=== PATIENT | female | born 1980 | race Hispanic/Latino ===

== ENCOUNTER 2019-02-24 03:31 | Emergency (ER) | payer OTHER, SELFPAY ==
[2019-02-24] MEDS ORDERED: NA CHLORIDE 0.9% 1,000 ML ONE (04:09)
[2019-02-24] MEDS ORDERED: ONDANSETRON 4 MG/2 ML VIAL ONE ×2 (04:09→06:32)
[2019-02-24] MEDS ORDERED: MEPERIDINE HCL 25 MG/0.5 ML ONE (04:28)
[2019-02-24 04:31] LABS: Absolute Monocytes 0.7 K/uL (0.1-1.3); Basophils % 0.8 % (0-1.3); Hematocrit 38.5 % (36.0-45.0); Lymphocytes % 22.3 % (15.3-44.8); MPV 8.2 fL (7.6-11.3); Monocytes % 7.7 % (3.3-12.3); RBC Red Blood Cell Count 5.38 M/uL (3.86-4.86)
[2019-02-24 04:47] LABS: ALT/SGPT 18 U/L (12-78); AST/SGOT 16 U/L (15-37); Albumin 3.6 g/dL (3.4-5.0); Alkaline Phosphatase 88 U/L (45-117); BUN Blood Urea Nitrogen 9 mg/dL (7-18); Bicarbonate 26 mmol/L (21-32); Bilirubin Direct < 0.1 mg/dL (0-0.2); Bilirubin Total 0.4 mg/dL (0.2-1.0); Glucose Level 102 mg/dL (74-106); Lipase 57 U/L (73-393); Protein, Total 7.6 g/dL (6.4-8.2); Sodium Level 141 mmol/L (136-145)
[2019-02-24] MEDS ORDERED: POTASSIUM CL SA 10 MEQ TAB PO ONE (05:16)
--- NOTE | 2019-02-24 07:05 | ER ---
Nurse's Notes [facility] Name: Camila Oneil Age: 38 yrs Sex: Female : 1980 Arrival Date: 02/24/2019 Time: 03:35 Bed 18 Private MD: Diagnosis: Streptococcal pharyngitis;Vomiting Presentation: 02/24 03:40 Presenting complaint: Patient states: I'm having abdominal pain and vomiting started 3 rr5 days ago pain. denies fever and diarrhea. pain score of 7/10. 03:40 Transition of care: patient was not received from another setting of care. Onset of rr5 symptoms was February 21, 2019. Risk Assessment: Do you want to hurt yourself or someone else? Patient reports no desire to harm self or others. Initial Sepsis Screen: Does the patient meet any 2 criteria? No. Patient's initial sepsis screen is negative. Does the patient have a suspected source of infection? No. Patient's initial sepsis screen is negative. Care prior to arrival: None. 03:40 Method Of Arrival: Ambulatory rr5 03:40 Acuity: RUFINO 3 rr5 SHORE HAND DREDGE OR BARGE: 03:40 LMP 02/24/2019, 7 th day of menstruation rr5 Historical: - Allergies: 03:45 No Known Allergies; rr5 - Home Meds: 03:45 diet pill [Active]; rr5 - PMHx: 03:45 None; rr5 - PSHx: 03:45 Cholecystectomy; ; rr5 03:45 Tubal ligation; rr5 - Immunization history:: Adult Immunizations up to date. - Social history:: Smoking status: Patient uses tobacco products, denies chronic smoking, but will smoke occasionally, Patient/guardian denies using alcohol, street drugs. - Ebola Screening: : Patient negative for fever greater than or equal to 101.5 degrees Fahrenheit, and additional compatible Ebola Virus Disease symptoms Patient denies exposure to infectious person Patient denies travel to an Ebola-affected area in the 21 days before illness onset. - Family history:: not pertinent. - Hospitalizations: : No recent hospitalization is reported. Screenin:09 Abuse screen: Denies threats or abuse. Denies injuries from another. Nutritional rr5 screening: No deficits noted. Tuberculosis screening: No symptoms or risk factors identified. Fall Risk IV access (20 points). Total Isaac Fall Scale indicates No Risk (0-24 pts). Assessment: 03:40 General: Appears in no apparent distress. uncomfortable, Behavior is calm, cooperative, rr5 appropriate for age. Pain: Complains of pain in left upper quadrant Pain does not radiate. Pain currently is 7 out of 10 on a pain scale. Quality of pain is described as aching, Pain began 2-3 days ago. Is intermittent. Neuro: Level of Consciousness is awake, alert, obeys commands, Oriented to person, place, time, Appropriate for age. Cardiovascular: Capillary refill < 3 seconds Patient's skin is warm and dry. Respiratory: Airway is patent Respiratory effort is even, unlabored, Respiratory pattern is regular, symmetrical. GI: Abdomen is round Bowel sounds Abd is soft and non tender Reports upper abdominal pain, intolerance of fluids, intolerance of food, nausea, vomiting. : No signs and/or symptoms were reported regarding the genitourinary system. EENT: No signs and/or symptoms were reported regarding the EENT system. Derm: Skin is intact, Skin temperature is warm. Musculoskeletal: Capillary refill < 3 seconds, Range of motion: intact in all extremities. 04:18 Reassessment: oral contrast consumed. CT staff aware. rr5 04:50 Reassessment: Patient appears in no apparent distress at this time. Patient is alert, rr5 oriented x 3, equal unlabored respirations, skin warm/dry/pink. Patient states feeling better. Patient states symptoms have improved. 05:55 Reassessment: Patient appears in no apparent distress at this time. Patient is alert, rr5 oriented x 3, equal unlabored respirations, skin warm/dry/pink. went to CT scan. 06:15 Reassessment: came back from CT scan. complaining of nauseated. ED provider aware with rr5 order made and carried out. 07:30 Reassessment: Patient appears in no apparent distress at this time. Patient and/or sv family updated on plan of care and expected duration. Pain level reassessed. Patient is alert, oriented x 3, equal unlabored respirations, skin warm/dry/pink. Pt waiting for shot time. 07:54 Reassessment: Patient appears in no apparent distress at this time. Patient and/or sv family updated on plan of care and expected duration. Pain level reassessed. Patient is alert, oriented x 3, equal unlabored respirations, skin warm/dry/pink. Patient states feeling better. Patient states symptoms have improved. Vital Signs: 03:40 BP 131 / 102; Pulse 103; Resp 17; Temp 98; Pulse Ox 99% ; Weight 65.32 kg; Height 5 ft. rr5 2 in. (157.48 cm); Pain 7/10; 04:25 BP 142 / 111; Pulse 95; Resp 17; Pulse Ox 99% on R/A; rr5 04:49 BP 116 / 89; Pulse 81; Resp 15; Pulse Ox 99% on R/A; Pain 5/10; rr5 06:00 BP 110 / 78; Pulse 75; Resp 16; Temp 98.1; Pulse Ox 99% on R/A; rr5 07:30 BP 112 / 77; Pulse 77; Resp 18; Pulse Ox 99% ; sv 03:40 Body Mass Index 26.34 (65.32 kg, 157.48 cm) rr5 ED Course: 03:35 Patient arrived in ED. am2 03:35 Arie Fitzpatrick RN is Primary Nurse. rr5 03:35 Anish Green MD is Attending Physician. rn 03:40 Arm band placed on. rr5 03:44 Triage completed. rr5 03:55 Flu and/or RSV swab sent to lab. Strep swab sent to lab. rr5 04:00 No provider procedures requiring assistance completed. Initial lab(s) drawn, by de, rr5 sent to lab. Inserted saline lock: 20 gauge in right antecubital area, using aseptic technique. Blood collected. 04:20 Oral contrast reported to be complete. eh 06:[address] via wheelchair. eh 06:02 CT completed. Patient tolerated procedure well. Patient moved back from CT. eh 06:20 CT Abd/Pelvis - W/Contrast In Process Unspecified. EDMS 07:30 Patient has correct armband on for positive identification. sv 07:54 IV discontinued, intact, bleeding controlled, No redness/swelling at site. Pressure sv dressing applied. Administered Medications: 04:00 Drug: NS 0.9% 1000 ml Route: IV; Rate: 1000 ml; Site: right antecubital; rr5 05:10 Follow up: Response: No adverse reaction; IV Status: Completed infusion; IV Intake: rr5 1000ml 04:01 Drug: Zofran 4 mg Route: IVP; Site: right antecubital; rr5 05:00 Follow up: Response: No adverse reaction rr5 04:15 Drug: Demerol 25 mg Route: IVP; Site: right antecubital; rr5 05:15 Follow up: Response: No adverse reaction rr5 06:20 Drug: Potassium Chloride 40 mEq Route: PO; rr5 07:11 Follow up: Response: No adverse reaction rr5 06:22 Drug: Zofran 4 mg Route: IVP; Site: right antecubital; rr5 07:11 Follow up: Response: No adverse reaction rr5 07:28 Drug: Rocephin - (cefTRIAXone) 1 grams Route: IVPB; Infused Over: 30 mins; Site: right sv antecubital; 07:31 Follow up: Response: No adverse reaction; IV Status: Completed infusion; IV Intake: 10mlsv Intake: 05:10 IV: 1000ml; Total: 1000ml. rr5 07:31 IV: 10ml; Total: 1010ml. sv 06:50 voided freely rr5 Output: 06:50 Other: 1; Total: 0ml. rr5 06:50 voided freely rr5 Outcome: 07:04 Discharge ordered by . rn 07:54 Discharged to home ambulatory. sv 07:54 Condition: stable 07:54 Condition: improved 07:54 Discharge instructions given to patient, Instructed on discharge instructions, follow up and referral plans. medication usage, Demonstrated understanding of instructions, follow-up care, medications, Prescriptions given X 2. 07:55 Patient left the ED. sv Signatures: Dispatcher [employer] Karol Rodriguez RN Brian Gomez Roman, MD MD rn Moreno, Amanda am2 Roque, Raymond, RN RN rr5 Corrections: (The following items were deleted from the chart) 04:14 03:45 PMHx: None; rr5 rr5
--- NOTE | 2019-02-24 07:05 | EDPHYS ---
Physician Documentation [facility] Name: Camila Oneil Age: 38 yrs Sex: Female : 1980 Arrival Date: 02/24/2019 Time: 03:35 Bed 18 Private MD: ED Physician Anish Green HPI: 02/24 04:15 This 38 yrs old Female presents to ER via Ambulatory with complaints of rn Abdominal Pain, Vomiting. 04:15 The patient presents to the emergency department with nausea, vomiting, abdominal pain. rn Onset: The symptoms/episode began/occurred 3 day(s) ago. Possible causes: unknown. The symptoms are aggravated by nothing. The symptoms are alleviated by nothing. Severity of symptoms: At their worst the symptoms were moderate in the emergency department the symptoms are unchanged. The patient has not experienced similar symptoms in the past. REports nausea/vomiting/upper abd pain, denies diarrhea, reports has had gallbladder removed, kids recently with strep. Has had symptoms for 3 days, not tolerating PO, denies acid reflux. . K 12 PRINCIPAL: 03:40 LMP 02/24/2019, 7 th day of menstruation rr5 Historical: - Allergies: 03:45 No Known Allergies; rr5 - Home Meds: 03:45 diet pill [Active]; rr5 - PMHx: 03:45 None; rr5 - PSHx: 03:45 Cholecystectomy; ; rr5 03:45 Tubal ligation; rr5 - Immunization history:: Adult Immunizations up to date. - Social history:: Smoking status: Patient uses tobacco products, denies chronic smoking, but will smoke occasionally, Patient/guardian denies using alcohol, street drugs. - Ebola Screening: : Patient negative for fever greater than or equal to 101.5 degrees Fahrenheit, and additional compatible Ebola Virus Disease symptoms Patient denies exposure to infectious person Patient denies travel to an Ebola-affected area in the 21 days before illness onset. - Family history:: not pertinent. - Hospitalizations: : No recent hospitalization is reported. ROS: 04:15 Constitutional: Negative for fever, chills, and weight loss, Eyes: Negative for injury, rn pain, redness, and discharge, Neck: Negative for injury, pain, and swelling, Cardiovascular: Negative for chest pain, palpitations, and edema, Respiratory: Negative for shortness of breath, cough, wheezing, and pleuritic chest pain, Abdomen/GI: + abd pain and nausea/vomiting MS/Extremity: Negative for injury and deformity, Skin: Negative for injury, rash, and discoloration, Neuro: + generalized weakness Exam: 04:15 Constitutional: This is a well developed, well nourished patient who is awake, alert, rn and in no acute distress. Head/Face: Normocephalic, atraumatic. ENT: dry MM Neck: Trachea midline, no thyromegaly or masses palpated, and no cervical lymphadenopathy. Supple, full range of motion without nuchal rigidity, or vertebral point tenderness. No Meningismus. Cardiovascular: Tachycardic, regular, intact distal pulses Respiratory: No increased work of breathing, no retractions or nasal flaring. Speaking full sentences Abdomen/GI: + soft, mild epigastric and periumbilical tenderness, no rebound Skin: Warm, dry. Normal color with no rashes, no lesions, and no evidence of cellulitis. MS/ Extremity: Pulses equal, no cyanosis. Neurovascular intact. Full, normal range of motion. Equal circumference. Neuro: Awake and alert, GCS 15, oriented to person, place, time, and situation. Cranial nerves II-XII grossly intact. Motor strength 5/5 in all extremities. Sensory grossly intact. Cerebellar exam normal. Normal gait. Vital Signs: 03:40 BP 131 / 102; Pulse 103; Resp 17; Temp 98; Pulse Ox 99% ; Weight 65.32 kg; Height 5 ft. rr5 2 in. (157.48 cm); Pain 7/10; 04:25 BP 142 / 111; Pulse 95; Resp 17; Pulse Ox 99% on R/A; rr5 04:49 BP 116 / 89; Pulse 81; Resp 15; Pulse Ox 99% on R/A; Pain 5/10; rr5 06:00 BP 110 / 78; Pulse 75; Resp 16; Temp 98.1; Pulse Ox 99% on R/A; rr5 07:30 BP 112 / 77; Pulse 77; Resp 18; Pulse Ox 99% ; sv 03:40 Body Mass Index 26.34 (65.32 kg, 157.48 cm) rr5 MDM: 03:35 Patient medically screened. rn 06:55 Differential diagnosis: viral gastroenteritis, gastroenteritis. Data reviewed: vital rn signs, nurses notes, lab test result(s), and as a result, I will discharge patient. Counseling: I had a detailed discussion with the patient and/or guardian regarding: the historical points, exam findings, and any diagnostic results supporting the discharge/admit diagnosis, lab results, radiology results, the need for outpatient follow up, to return to the emergency department if symptoms worsen or persist or if there are any questions or concerns that arise at home. Response to treatment: the patient's symptoms have markedly improved after treatment, and as a result, I will discharge patient. ED course: Now having diarrhea, normal w/u except for strep +, likely strep from her boys and having enteritis reaction as well. . 07:08 ED course: CT shows fatty liver, possible kidney stone, possible pyelonephritis. rn Patient without symptoms of kidney stone, denies lower abd pain, will treat with stronger abx given non-specific ct findings. No hx of kidney stone and clinical story not consistent. . 02/24 03:39 Order name: Basic Metabolic Panel; Complete Time: 04:52 rn 02/24 03:39 Order name: CBC with Diff; Complete Time: 04:52 rn 02/24 03:39 Order name: Hepatic Function; Complete Time: 04:52 rn 02/24 03:39 Order name: Lipase; Complete Time: 04:52 rn 02/24 03:41 Order name: Strep; Complete Time: 04:57 rn 02/24 03:41 Order name: Flu; Complete Time: 04:57 rn 02/24 03:39 Order name: CT Abd/Pelvis - W/Contrast rn 02/24 07:29 Order name: Urine Culture sv 02/24 07:30 Order name: Urine Dipstick--Ancillary (enter results) eb 02/24 03:39 Order name: IV Saline Lock; Complete Time: 04:09 rn 02/24 03:39 Order name: Labs collected and sent; Complete Time: 04:09 rn Administered Medications: 04:00 Drug: NS 0.9% 1000 ml Route: IV; Rate: 1000 ml; Site: right antecubital; rr5 05:10 Follow up: Response: No adverse reaction; IV Status: Completed infusion; IV Intake: rr5 1000ml 04:01 Drug: Zofran 4 mg Route: IVP; Site: right antecubital; rr5 05:00 Follow up: Response: No adverse reaction rr5 04:15 Drug: Demerol 25 mg Route: IVP; Site: right antecubital; rr5 05:15 Follow up: Response: No adverse reaction rr5 06:20 Drug: Potassium Chloride 40 mEq Route: PO; rr5 07:11 Follow up: Response: No adverse reaction rr5 06:22 Drug: Zofran 4 mg Route: IVP; Site: right antecubital; rr5 07:11 Follow up: Response: No adverse reaction rr5 07:28 Drug: Rocephin - (cefTRIAXone) 1 grams Route: IVPB; Infused Over: 30 mins; Site: right sv antecubital; 07:31 Follow up: Response: No adverse reaction; IV Status: Completed infusion; IV Intake: 10mlsv Disposition: 02/24/19 07:04 Discharged to Home. Impression: Streptococcal pharyngitis, Vomiting. - Condition is Stable. - Discharge Instructions: Nausea and Vomiting, Adult, Strep Throat. - Prescriptions for Zofran ODT 4 mg Oral tablet,disintegrating - place 1 tablet by TRANSLINGUAL route every 8 hours As needed; 20 tablet. cefpodoxime 100 mg Oral Tablet - take 2 tablet by ORAL route every 12 hours for 10 days take with food; 40 tablet. - Medication Reconciliation Form, Thank You Letter, Antibiotic Education, Prescription Opioid Use form. - Follow up: Private Physician; When: As needed; Reason: Recheck today's complaints, Re-evaluation by your physician. - Problem is new. - Symptoms have improved. Signatures: Dispatcher [employer] Karol Rodriguez RN RN sv Nieto, Roman, MD MD rn Roque, Raymond, RN RN rr5 Corrections: (The following items were deleted from the chart) 04:14 03:45 PMHx: None; rr5 rr5 07:55 07:04 02/24/2019 07:04 Discharged to Home. Impression: Streptococcal pharyngitis; sv Vomiting. Condition is Stable. Discharge Instructions: Nausea and Vomiting, Adult, Strep Throat. Prescriptions for Zofran ODT 4 mg Oral tablet,disintegrating - place 1 tablet by TRANSLINGUAL route every 8 hours As needed; 20 tablet. and Forms are Medication Reconciliation Form, Thank You Letter, Antibiotic Education, Prescription Opioid Use. Follow up: Private Physician; When: As needed; Reason: Recheck today's complaints, Re-evaluation by your physician. Problem is new. Symptoms have improved. rn
[2019-02-24] MEDS ORDERED: CEFTRIAXONE/SWI 1gm 1 GM/10 ML SYR ONE (07:26)
[2019-02-24 08:32] LABS: Urine Blood 1+ (NEG); Urine Glucose NEGATIVE (NEG); Urine Protein NEGATIVE (NEG); Urine Specific Gravity 1.005 (1.005-1.030); Urine pH 6.5 (5.0-7.0)
--- NOTE | 2019-02-24 10:32 | RAD REPORT ---
EXAM DESCRIPTION: CT ABDOMEN AND PELVIS WITH CONTRAST. 02/24/2019 CLINICAL HISTORY: Abdominal pain COMPARISON: None TECHNIQUE: Axial [address] imaging of the abdomen and pelvis performed utilizing intravenous contrast. Reformatted coronal and sagittal images reviewed. A dose reduction technique was utilized with automated exposure control according to patient size. FINDINGS: LOWER THORAX: Mild right lower lobe atelectasis. No edema. No pleural fluid. Heart is nor mal in size. ABDOMEN: LIVER/GALLBLADDER: Normal liver size. Decreased attenuation due to mild steatosis. Gallbladder has b een resected. No biliary dilatation. SPLEEN/PANCREAS: Normal spleen. Normal pancreas. KIDNEYS/ADRENAL GLANDS: Normal adrenal glands. There are very faint hyperdensities within the anteri or left renal cortex. Kidneys otherwise normal. No hydronephrosis or stone. No renal mass. RETROPERITONEAL VESSELS/NODES: Normal aorta and inferior vena cava caliber. No adenopathy. Mesenteri c vessels appear normal. BOWEL: Normal stomach. The small bowel loops are unremarkable. The appendix is not definitely seen. Unremarkable colon. MESENTERY/PERITONEUM: No adenopathy. No ascites. PELVIS: BLADDER: Normal bladder. GENITAL ORGANS: Normal uterus. PERITONEUM: No pelvic free fluid. No pelvic adenopathy. BONES AND SOFT TISSUES: Normal lumbosacral alignment. Normal bone mineralization. Unremarkable bony pelvis. IMPRESSION: 1. Mild hepatic steatosis. 2. Minimal right renal pelvic distention with a possible 3 mm right ureterovesical junction stone. 3. Possible small focus of anterior left renal pyelonephritis. Correlate with urinalysis. Electronically signed by: Sherri Paiz DO 02/24/2019 6:38 AM CDT Due to temporary technical issues with the PACS/Fluency reporting system, reports are being signed by the in house radiologist as a courtesy to ensure prompt reporting. The interpreting radiologist is f ully responsible for the content of the report.
== END 2019-02-24 07:55 | disposition home or self-care (01) ==
LOC: ER 03:31
DX: J02.0 Streptococcal pharyngitis (principal); Z72.0 Tobacco use
CPT/HCPCS: 36415; 74177; 80048; 80076; 81003; 83690; 85025; 87081; 87086; 87088; 87804; 96361; 96374; 96375; 99284; J0696; J2175; J2405; J7030; Q9967

== ENCOUNTER 2019-08-01 08:00 | Emergency (ER) | payer SELFPAY ==
[2019-08-01] MEDS ORDERED: METOCLOPRAMIDE 10 MG/2mL INJ ONE (08:36)
[2019-08-01] MEDS ORDERED: KETOROLAC 30 MG/ML INJ ONE (08:37)
[2019-08-01] MEDS ORDERED: NA CHLORIDE 0.9% 1,000 ML ONE (08:37)
--- NOTE | 2019-08-01 10:26 | EDPHYS ---
Physician Documentation [facility] Name: Camila Oneil Age: 39 yrs Sex: Female : 1980 Arrival Date: 08/01/2019 Time: 08:03 Bed 16 Private MD: ED Physician Randolph Kumar HPI: 08/01 10:40 This 39 yrs old Female presents to ER via Ambulatory with complaints of kb Headache, Neck Problem. 10:40 The patient presents with sore throat. The patient describes throat pain as constant. kb Onset: The symptoms/episode began/occurred 3 day(s) ago. Severity of symptoms: At their worst the symptoms were moderate, in the emergency department the symptoms are unchanged. Modifying factors: The symptoms are alleviated by nothing, the symptoms are aggravated by swallowing, Patient's oral intake status: good. Associated signs and symptoms: Pertinent positives: fever, flu-like symptoms, Sore throat. The patient has not experienced similar symptoms in the past. The patient has not recently seen a physician. Pt reports fever, chills, malaise last week for 4 days. States she stayed in bed all 4 days. Developed sore throat and bumps on the back of her neck 3 days ago so she came in. States the bumps are sore to touch so she didn't sleep well last night. Also reports migraine since all of this started. 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 - Social history:: Smoking status: Patient uses tobacco products, 1-2 cigarettes/day. - Ebola Screening: : Patient negative for fever greater than or equal to 101.5 degrees Fahrenheit, and additional compatible Ebola Virus Disease symptoms Patient denies exposure to infectious person Patient denies travel to an Ebola-affected area in the 21 days before illness onset No symptoms or risks identified at this time. ROS: 10:38 Eyes: Negative for injury, pain, redness, and discharge, Cardiovascular: Negative for kb chest pain, palpitations, and edema, Respiratory: Negative for shortness of breath, cough, wheezing, and pleuritic chest pain, Abdomen/GI: Negative for abdominal pain, nausea, vomiting, diarrhea, and constipation, Back: Negative for injury and pain, MS/Extremity: Negative for injury and deformity, Skin: Negative for injury, rash, and discoloration. 10:38 Constitutional: Positive for chills, fatigue, fever, malaise. 10:38 ENT: Positive for sore throat. 10:38 Neck: Positive for swollen nodes, tenderness. 10:38 Neuro: Positive for headache. Exam: 10:39 Constitutional: This is a well developed, well nourished patient who is awake, alert, kb and in no acute distress. Head/Face: Normocephalic, atraumatic. ENT: Nares patent. No nasal discharge, no septal abnormalities noted. Tympanic membranes are normal and external auditory canals are clear. Oropharynx with no redness, swelling, or masses, exudates, or evidence of obstruction, uvula midline. Mucous membranes moist. Chest/axilla: Normal chest wall appearance and motion. Nontender with no deformity. No lesions are appreciated. Cardiovascular: Regular rate and rhythm with a normal S1 and S2. No gallops, murmurs, or rubs. Normal PMI, no JVD. No pulse deficits. Respiratory: Lungs have equal breath sounds bilaterally, clear to auscultation and percussion. No rales, rhonchi or wheezes noted. No increased work of breathing, no retractions or nasal flaring. Abdomen/GI: Soft, non-tender, with normal bowel sounds. No distension or tympany. No guarding or rebound. No evidence of tenderness throughout. Skin: Warm, dry with normal turgor. Normal color with no rashes, no lesions, and no evidence of cellulitis. MS/ Extremity: Pulses equal, no cyanosis. Neurovascular intact. Full, normal range of motion. Neuro: Awake and alert, GCS 15, oriented to person, place, time, and situation. Cranial nerves II-XII grossly intact. Motor strength 5/5 in all extremities. Sensory grossly intact. Cerebellar exam normal. Normal gait. 10:39 Neck: Lymph nodes: lymphadenopathy is appreciated, posterior cervical nodes. Vital Signs: 08:14 BP 154 / 98; Pulse 101; Resp 18; Temp 97.9; Pulse Ox 100% ; Weight 72.12 kg; Height 5 ss ft. 2 in. (157.48 cm); Pain 10/10; 10:35 BP 126 / 87; Pulse 92; Resp 16 S; Pulse Ox 100% on R/A; Pain 6/10; ca1 08:14 Body Mass Index 29.08 (72.12 kg, 157.48 cm) ss MDM: 08:16 Patient medically screened. kb 10:24 Data reviewed: vital signs, nurses notes. Data interpreted: Pulse oximetry: on room air kb is 100 %. Interpretation: normal. Counseling: I had a detailed discussion with the patient and/or guardian regarding: the historical points, exam findings, and any diagnostic results supporting the discharge/admit diagnosis, lab results, the need for outpatient follow up, a family practitioner, to return to the emergency department if symptoms worsen or persist or if there are any questions or concerns that arise at home. 08/01 08:17 Order name: Flu; Complete Time: 08:58 kb 08/01 08:17 Order name: Strep; Complete Time: 08:43 kb 08/01 08:17 Order name: [place] Screen Profile; Complete Time: 09:40 kb 08/01 08:44 Order name: Throat Culture EDMS 08/01 08:17 Order name: IV Start; Complete Time: 08:29 kb Administered Medications: 08:40 Drug: Reglan 10 mg Route: IVP; Site: right antecubital; sg 09:30 Follow up: Response: No adverse reaction; Pain is unchanged, physician notified sg 08:44 Drug: NS 0.9% 1000 ml Route: IV; Rate: 1000 ml; Site: right antecubital; sg 10:00 Follow up: Response: No adverse reaction; IV Status: Completed infusion; IV Intake: sg 1000ml 08:44 Drug: TORadol - Ketorolac 15 mg Route: IVP; Site: right antecubital; sg 09:30 Follow up: Response: No adverse reaction; Pain is decreased sg Disposition: 08/02 07:15 Co-signature as Attending Physician, Randolph Kumar MD I agree with the assessment and kdr plan of care. Disposition: 08/01/19 10:25 Discharged to Home. Impression: Pain in throat, Migraine. - Condition is Stable. - Discharge Instructions: Migraine Headache, [id number], Sore Throat, [id number]. - Medication Reconciliation Form, Thank You Letter, Antibiotic Education, Prescription Opioid Use form. - Follow up: Emergency Department; When: As needed; Reason: Worsening of condition. Follow up: Private Physician; When: 2 - 3 days; Reason: Recheck today's complaints, Continuance of care, Re-evaluation by your physician. Signatures: Dispatcher [employer] EDMS VinayLenardHaven, MEETING SPECIALIST-C MEETING SPECIALIST-Gordon Hubbard RN RN sg Randolph Kumar MD MD [facility] Junie Pan RN RN ss AcMaria Luz miller RN RN ca1 Corrections: (The following items were deleted from the chart) 08/01 10:41 10:25 08/01/2019 10:25 Discharged to Home. Impression: Pain in throat; Migraine. ca1 Condition is Stable. Forms are Medication Reconciliation Form, Thank You Letter, Antibiotic Education, Prescription Opioid Use. Follow up: Emergency Department; When: As needed; Reason: Worsening of condition. Follow up: Private Physician; When: 2 - 3 days; Reason: Recheck today's complaints, Continuance of care, Re-evaluation by your physician. kb
--- NOTE | 2019-08-01 10:26 | ER ---
Nurse's Notes [facility] Name: Camila Oneil Age: 39 yrs Sex: Female : 1980 Arrival Date: 08/01/2019 Time: 08:03 Bed 16 Private MD: Diagnosis: Pain in throat;Migraine Presentation: 08/01 08:11 Presenting complaint: Patient states: headache, bumps on back/sides of neck, sore ss throat, fever for a week. Transition of care: patient was not received from another setting of care. Onset of symptoms was July 26, 2019. Risk Assessment: Do you want to hurt yourself or someone else? Patient reports no desire to harm self or others. Initial Sepsis Screen: Does the patient meet any 2 criteria? HR > 90 bpm. Does the patient have a suspected source of infection? No. Patient's initial sepsis screen is negative. Care prior to arrival: None. 08:11 Method Of Arrival: Ambulatory ss 08:11 Acuity: RUFINO 3 Triage Assessment: 08:13 Headache History: The patient has had previous headaches and this one is similar to previous episodes. General: Appears in no apparent distress. Behavior is calm, cooperative. Pain: Pain currently is 10 out of 10 on a pain scale. Pain began 1 week ago Also complains of sore throat, fever. Neuro: No deficits noted. 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 - Social history:: Smoking status: Patient uses tobacco products, 1-2 cigarettes/day. - Ebola Screening: : Patient negative for fever greater than or equal to 101.5 degrees Fahrenheit, and additional compatible Ebola Virus Disease symptoms Patient denies exposure to infectious person Patient denies travel to an Ebola-affected area in the 21 days before illness onset No symptoms or risks identified at this time. Screenin:42 Abuse screen: Denies threats or abuse. Denies injuries from another. Nutritional sg screening: No deficits noted. Tuberculosis screening: No symptoms or risk factors identified. Never had TB. Fall Risk None identified. Assessment: 08:42 General: Appears in no apparent distress. well groomed, well developed, well nourished, sg Behavior is calm, cooperative, appropriate for age. Pain: Complains of pain in head Quality of pain is described as aching, tender, throbbing. Neuro: Level of Consciousness is awake, alert, obeys commands, Oriented to person, place, time, Regional Manager are equal bilaterally Moves all extremities. Speech is normal, Facial symmetry appears normal, Reports headache in entire frontal area. Cardiovascular: Capillary refill is brisk in bilateral fingers Patient's skin is warm and dry. Chest pain is denied. Respiratory: Airway is patent Respiratory effort is even, Respiratory pattern is regular, symmetrical. GI: Abdomen is round non-distended. : No signs and/or symptoms were reported regarding the genitourinary system. EENT: No signs and/or symptoms were reported regarding the EENT system. Derm: Skin is pink, warm \T\ dry. Musculoskeletal: Circulation, motion, and sensation intact. Range of motion: intact in all extremities. 10:35 Reassessment: Patient appears in no apparent distress at this time. Patient is alert, ca1 oriented x 3, equal unlabored respirations, skin warm/dry/pink. Patient states feeling better. Vital Signs: 08:14 BP 154 / 98; Pulse 101; Resp 18; Temp 97.9; Pulse Ox 100% ; Weight 72.12 kg; Height 5 ss ft. 2 in. (157.48 cm); Pain 10/10; 10:35 BP 126 / 87; Pulse 92; Resp 16 S; Pulse Ox 100% on R/A; Pain 6/10; ca1 08:14 Body Mass Index 29.08 (72.12 kg, 157.48 cm) ED Course: 08:03 Patient arrived in ED. mr 08:11 [facility] F[facility]-C [facility] ss 08:13 Triage completed. ss 08:14 Arm band placed on left wrist. EKG completed in triage. Results shown to MD. ss 08:15 Patient has correct armband on for positive identification. Bed in low position. Call sg light in reach. Side rails up X2. Pulse ox on. NIBP on. 08:16 Randolph Kumar MD is Attending Physician. kb 08:24 Gordon Haro, RN is Primary Nurse. sg 08:29 Initial lab(s) drawn, by me, sent to lab. Flu and/or RSV swab sent to lab. Strep swab em1 sent to lab. Inserted saline lock: 20 gauge in right antecubital area, using aseptic technique. Blood collected. 09:35 Warm blanket given. Verbal reassurance given. sg 10:39 No provider procedures requiring assistance completed. IV discontinued, intact, ca1 bleeding controlled, No redness/swelling at site. Pressure dressing applied. Administered Medications: 08:40 Drug: Reglan 10 mg Route: IVP; Site: right antecubital; sg 09:30 Follow up: Response: No adverse reaction; Pain is unchanged, physician notified sg 08:44 Drug: NS 0.9% 1000 ml Route: IV; Rate: 1000 ml; Site: right antecubital; sg 10:00 Follow up: Response: No adverse reaction; IV Status: Completed infusion; IV Intake: sg 1000ml 08:44 Drug: TORadol - Ketorolac 15 mg Route: IVP; Site: right antecubital; sg 09:30 Follow up: Response: No adverse reaction; Pain is decreased sg Outcome: 10:25 Discharge ordered by MD. granger 10:39 Discharged to home ambulatory. ca1 10:39 Condition: stable 10:39 Discharge instructions given to patient, Instructed on Demonstrated understanding of instructions, follow-up care. 10:41 Patient left the ED. ca1 Signatures: Haven Mclean, FIRING PIN GAUGER-C FIRING PIN [id number] Gordon aHro RN RN sg Noel, Dara Garibay, Edgar em1 Junie Pan RN RN Maria Luz Schulz RN RN ca1
[2019-08-01 10:56] VITALS: TEMP 97.9; O2SAT 100
[2019-08-01 10:58] VITALS: BP 126/87
== END 2019-08-01 10:41 | disposition home or self-care (01) ==
LOC: ER 08:00
DX: G43.909 Migraine, unspecified, not intractable, without status migrainosus (principal); R50.9 Fever, unspecified; Z72.0 Tobacco use
CPT/HCPCS: 36415; 86308; 87070; 87081; 87804; 96361; 96374; 96375; 99284; J2765; J7030

== ENCOUNTER 2022-12-01 22:06 | Emergency (ER) | payer SELFPAY ==
[2022-12-01 23:02] LABS: Urine Blood 1+ (Negative); Urine Glucose Negative (Negative); Urine Protein Negative (Negative); Urine Specific Gravity >=1.030 (1.005-1.030); Urine pH 5.5 (5.0-7.0)
[2022-12-01 23:04] LABS: Absolute Lymphocytes (CBC) 2.2 K/uL (0.7-4.9); Hematocrit 38.1 % (36.0-45.0); Lymphocytes % 32.6 % (15.3-44.8); MCV 75.1 fL (80-100); MPV 7.5 fL (7.6-11.3); RBC Red Blood Cell Count 5.07 M/uL (3.86-4.86)
[2022-12-01 23:20] LABS: Albumin 3.3 g/dL (3.4-5.0); Bilirubin Total 0.4 mg/dL (0.2-1.0); Potassium 3.5 mmol/L (3.5-5.1); Protein, Total 7.7 g/dL (6.4-8.2)
[2022-12-01 23:37] LABS: Urine Specific Gravity/Preg >1.030 (1.005-1.030)
[2022-12-02] MEDS ORDERED: KETOROLAC 30 MG/ML INJ ONE (00:02)
[2022-12-02] MEDS ORDERED: FAMOTIDINE 20 MG/2 ML VIAL IV ONE (00:02)
[2022-12-02] MEDS ORDERED: NA CHLORIDE 0.9% 1,000 ML ONE (00:02)
[2022-12-02] MEDS ORDERED: ONDANSETRON 4 MG/2 ML VIAL ONE (00:02)
[2022-12-02] MEDS ORDERED: DICYCLOMINE HCL 10 MG CAP ONE (01:09)
[2022-12-02 02:32] VITALS: TEMP 97.7
[2022-12-02 02:33] VITALS: BP 129/59; O2SAT 99
--- NOTE | 2022-12-02 10:30 | RAD REPORT ---
EXAM DESCRIPTION: CT Abdomen and Pelvis With Intravenous Contrast CLINICAL HISTORY: The patient is 42 years old and is Female; ABD PAIN TECHNIQUE: Axial computed tomography images of the abdomen and pelvis with intravenous contrast. S agittal and coronal reformatted images were created and reviewed. This CT exam was performed using one or more of the following dose reduction techniques: automated exposure control, adjustment of t he mA and/or kV according to patient size, and/or use of iterative reconstruction technique. COMPARISON: No relevant prior studies available. FINDINGS: Lung bases: Unremarkable. No mass. No consolidation. ABDOMEN: Liver: Mild hepatomegaly. Gallbladder and bile ducts: Gallbladder is surgically absent. No ductal dilation. Pancreas: Unremarkable. No mass. No ductal dilation. Spleen: Unremarkable. No splenomegaly. Adrenals: Unremarkable. No mass. Kidneys and ureters: Nonobstructing calcification in the right kidney. Stomach and bowel: Unremarkable. No obstruction. No mucosal thickening. PELVIS: Appendix: No findings to suggest acute appendicitis. Bladder: Unremarkable. Reproductive: Heterogeneous multicystic appearance to the cervix/lower uterine segment. Simple-appearing 3 cm right ovarian/adnexal cyst. No follow-up imaging is recommended. ABDOMEN and PELVIS: Intraperitoneal space: Unremarkable. No free air. No significant fluid collection. Bones/joints: No acute fracture. No dislocation. Soft tissues: Unremarkable. Vasculature: Unremarkable. No abdominal aortic aneurysm. Lymph nodes: Unremarkable. No enlarged lymph nodes. IMPRESSION: 1. Heterogeneous multicystic appearance to the cervix/lower uterine segment. Neoplas m is not excluded. Consider pelvic ultrasound for further evaluation. 2. Simple-appearing 3 cm right ovarian/adnexal cyst. No follow-up imaging is recommended. Electronically signed by: Michael Castillo MD 12/02/2022 12:42 AM SHEAR GRINDER OPERATOR HELPER Due to temporary technical issues with the PACS/Fluency reporting system, reports are being signed by the in house radiologists without review as a courtesy to insure prompt reporting. The interpreting radiologist is fully responsible for the content of the report.
--- NOTE | 2022-12-18 14:13 | ER ---
Nurse's Notes [facility] Name: Camila Oneil Age: 42 yrs Sex: Female : 1980 Arrival Date: 12/01/2022 Time: 22:08 Bed 9 Private MD: Diagnosis: Upper abdominal pain, unspecified;Other ovarian cysts Presentation: 12/01 22:14 Chief complaint: Patient states: C/o abdominal pain, N/D X 2 days. Coronavirus screen: 3 Vaccine status: Patient reports receiving the 2nd dose of the covid vaccine. diarrhea, muscle pain, nausea. Ebola Screen: No symptoms or risks identified at this time. Initial Sepsis Screen: Does the patient meet any 2 criteria? No. Patient's initial sepsis screen is negative. Does the patient have a suspected source of infection? No. Patient's initial sepsis screen is negative. Risk Assessment: Do you want to hurt yourself or someone else? Patient reports no desire to harm self or others. Onset of symptoms was November 29, 2022. 22:14 Method Of Arrival: Ambulatory [facility] 22:14 Acuity: RUFINO 3 3 22:14 Care prior to arrival: Medication(s) given: Pepto-Bismol. 3 Triage Assessment: 12/02 00:29 General: Appears in no apparent distress. comfortable, Behavior is calm, cooperative, aa9 appropriate for age. Pain: Complains of pain in epigastric area. GI: Reports upper abdominal pain. 00:29 Neuro: Level of Consciousness is awake, alert, obeys commands, Oriented to person, aa9 place, time, situation. 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 - Social history:: Smoking status: Patient/guardian denies using tobacco. Screenin/08 01:24 [facility] ED Fall Risk Assessment (Adult) History of falling in the last 3 months, aa9 including since admission No falls in past 3 months (0 pts) Confusion or Disorientation No (0 pts) Intoxicated or Sedated No (0 pts) Impaired Gait No (0 pts) Mobility Assist Device Used No (0 pt) Altered Elimination No (0 pt) Score/Fall Risk Level 0 - 2 = Low Risk Oriented to surroundings, Maintained a safe environment, Assessed \T\ reinforced patient's understanding of fall precautions. Abuse screen: Denies threats or abuse. Denies injuries from another. Nutritional screening: No deficits noted. Tuberculosis screening: No symptoms or risk factors identified. Assessment: 12/01 23:49 Reassessment: pt taken to CT via wheelchair. mb9 12/02 01:24 Reassessment: Patient appears in no apparent distress at this time. Patient and/or aa9 family updated on plan of care and expected duration. Pain level reassessed. Patient is alert, oriented x 3, equal unlabored respirations, skin warm/dry/pink. Patient states symptoms have improved. GI: Bowel sounds present X 4 quads. Vital Signs: 12/01 22:14 BP 132 / 101; Pulse 115; Resp 18; Temp 97.7(O); Pulse Ox 100% on R/A; Weight 70.76 kg ll3 (R); Height 5 ft. 1 in. (R); Pain 8/10; 12/02 01:24 BP 129 / 59; Pulse 89; Resp 16 S; Pulse Ox 99% on R/A; aa9 12/01 22:14 Body Mass Index 29.48 (70.76 kg, 154.94 cm) ll3 03 22:14 Pain Scale: Adult ll3 ED Course: 12/01 22:08 Patient arrived in ED. ja2 22:12 [facility]C [facility]. kb 22:12 Tito Mendoza MD is Attending Physician. kb 22:17 Triage completed. ll3 22:17 Arm band placed on. ll3 22:57 Inserted saline lock: 20 gauge in right antecubital area, using aseptic technique. jb5 Blood collected. 22:57 CBC with Diff Sent. jb5 22:57 CMP Sent. jb5 22:57 Lipase Sent. jb5 23:25 Placed in gown. Bed in low position. Call light in reach. Side rails up X 1. Client mb9 placed on continuous cardiac and pulse oximetry monitoring. NIBP monitoring applied. 23:54 CT Abd/Pelvis - IV Contrast Only In Process Unspecified. EDMS 12/02 01:25 No provider procedures requiring assistance completed. IV discontinued, intact, aa9 bleeding controlled, No redness/swelling at site. Pressure dressing applied. Administered Medications: 00:15 Drug: NS 0.9% IV 1000 ml Route: IV; Rate: 1 bolus; Site: right antecubital; aa9 01:26 Follow up: Response: No adverse reaction; IV Status: Completed infusion; IV Intake: aa9 600ml 00:15 Drug: Famotidine IVP 20 mg Route: IVP; Site: right antecubital; aa9 01:23 Follow up: Response: No adverse reaction aa9 00:18 Drug: Ondansetron IVP 4 mg Route: IVP; Site: right antecubital; aa9 01:24 Follow up: Response: No adverse reaction aa9 00:19 Drug: TORadol - Ketorolac IVP 15 mg Route: IVP; Site: right antecubital; aa9 01:23 Follow up: Response: No adverse reaction aa9 01:23 Drug: Dicyclomine PO 20 mg Route: PO; aa9 01:25 Follow up: Response: No adverse reaction aa9 Medication: 01:26 VIS not applicable for this client. aa9 Intake: 01:26 IV: 600ml; Total: 600ml. aa9 Outcome: 01:03 Discharge ordered by . bárbara 01:26 Discharged to home ambulatory, with friend. aa9 01:26 Condition: stable 01:26 Discharge instructions given to patient, Instructed on discharge instructions, follow up and referral plans. medication usage, Demonstrated understanding of instructions, follow-up care, medications, Prescriptions given X 2. 01:26 Patient left the ED. aa9 Signatures: Dispatcher [employer] EDPR Haven Mclean, AVA BAKERP-Mercedes Mae Jessica ja2 Loubet, Lynsea, RN RN ll3 Bhavya Parker RN RN aa9 Dara Mckeon RN RN mb9
--- NOTE | 2022-12-18 14:13 | EDPHYS ---
Physician Documentation [facility] Name: Camila Oneil Age: 42 yrs Sex: Female : 1980 Arrival Date: 12/01/2022 Time: 22:08 Bed 9 Private MD: ED Physician Tito Mendoza HPI: 12/01 23:29 This 42 yrs old Female presents to ER via Ambulatory with complaints of kb Abdominal Pain, Back Pain. 23:29 The patient presents with abdominal pain in the left upper quadrant, in the left lower kb quadrant. Onset: The symptoms/episode began/occurred 2 day(s) ago. The symptoms do not radiate. Associated signs and symptoms: Pertinent positives: diarrhea, nausea, Pertinent negatives: fever, vomiting. The symptoms are described as constant. Modifying factors: The symptoms are alleviated by nothing, the symptoms are aggravated by nothing. Severity of pain: At its worst the pain was mild moderate in the emergency department the pain is unchanged. The patient has not experienced similar symptoms in the past. The patient has not recently seen a physician. 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 - Social history:: Smoking status: Patient/guardian denies using tobacco. ROS: 23:29 Constitutional: Negative for fever, chills, and weight loss. kb 23:29 Abdomen/GI: Positive for abdominal pain, nausea, diarrhea. 23:29 All other systems are negative. Exam: 23:29 Constitutional: This is a well developed, well nourished patient who is awake, alert, kb and in no acute distress. Head/Face: Normocephalic, atraumatic. ENT: Moist Mucous membranes Cardiovascular: Regular rate and rhythm with a normal S1 and S2. No gallops, murmurs, or rubs. No pulse deficits. Respiratory: Respirations even and unlabored. No increased work of breathing. Talking in full sentences Skin: Warm, dry with normal turgor. Normal color. MS/ Extremity: Pulses equal, no cyanosis. Neurovascular intact. Full, normal range of motion. Neuro: Awake and alert, GCS 15, oriented to person, place, time, and situation. Moves all extremities. Normal gait. Psych: Awake, alert, with orientation to person, place and time. Behavior, mood, and affect are within normal limits. 23:29 Abdomen/GI: Inspection: abdomen appears normal, Bowel sounds: normal, Palpation: soft, in all quadrants, moderate abdominal tenderness, in the left upper quadrant and left lower quadrant. Vital Signs: 22:14 BP 132 / 101; Pulse 115; Resp 18; Temp 97.7(O); Pulse Ox 100% on R/A; Weight 70.76 kg ll3 (R); Height 5 ft. 1 in. (R); Pain /; 12/02 01:24 BP 129 / 59; Pulse 89; Resp 16 S; Pulse Ox 99% on R/A; aa9 12/01 22:14 Body Mass Index 29.48 (70.76 kg, 154.94 cm) ll3 12/01 22:14 Pain Scale: Adult ll3 MDM: 12/01 22:14 Patient medically screened. kb 23:30 Differential diagnosis: diverticulitis, gastritis, non-specific abd pain, pancreatitis. kb Data reviewed: vital signs, nurses notes. ED course: Patient is a 42-year-old female who presents for nausea, diarrhea and abdominal pain that started 2 days ago. Denies fever and vomiting. On exam patient has mild to moderate tenderness to left abdomen. Respirations even and unlabored, lungs clear bilaterally, nontoxic in appearance. Serum labs, urinalysis and CT scan ordered.. 12/02 01:00 Counseling: I had a detailed discussion with the patient and/or guardian regarding: the kb historical points, exam findings, and any diagnostic results supporting the discharge/admit diagnosis, lab results, radiology results, the need for outpatient follow up, a family practitioner, an OB/Gyne specialist, to return to the emergency department if symptoms worsen or persist or if there are any questions or concerns that arise at home. ED course: Discussed diagnostic results with patient. Educated on incidental finding of multicystic appearance in the uterus/cervix and need for pelvic ultrasound. Patient has no suprapubic pain. Patient will follow-up with gynecology to have pelvic ultrasound completed. Patient understands the urgency of follow-up to rule out neoplasm. Patient tolerated p.o. intake patient educated on return precautions. Verbal understanding received.. 12/01 22:16 Order name: CBC with Diff; Complete Time: 23:05 kb 12/01 22:16 Order name: CMP; Complete Time: 23:23 kb 12/01 22:16 Order name: Lipase; Complete Time: 23:23 kb 12/01 23:03 Order name: Urine Dipstick-Ancillary; Complete Time: 23:05 EDMS 12/01 23:03 Order name: Urine --Ancillary (enter results); Complete Time: 23:40 rv1 12/01 22:16 Order name: CT Abd/Pelvis - IV Contrast Only kb 12/01 22:16 Order name: IV Saline Lock; Complete Time: 22:57 kb 12/01 22:16 Order name: Labs collected and sent; Complete Time: 22:57 kb 12/01 22:16 Order name: Urine Dipstick-Ancillary (obtain specimen); Complete Time: 23:41 kb 12/01 22:16 Order name: Urine Test (obtain specimen); Complete Time: 23:41 kb Administered Medications: 00:15 Drug: NS 0.9% IV 1000 ml Route: IV; Rate: 1 bolus; Site: right antecubital; aa9 01:26 Follow up: Response: No adverse reaction; IV Status: Completed infusion; IV Intake: aa9 600ml 00:15 Drug: Famotidine IVP 20 mg Route: IVP; Site: right antecubital; aa9 01:23 Follow up: Response: No adverse reaction aa9 00:18 Drug: Ondansetron IVP 4 mg Route: IVP; Site: right antecubital; aa9 01:24 Follow up: Response: No adverse reaction aa9 00:19 Drug: TORadol - Ketorolac IVP 15 mg Route: IVP; Site: right antecubital; aa9 01:23 Follow up: Response: No adverse reaction aa9 01:23 Drug: Dicyclomine PO 20 mg Route: PO; aa9 01:25 Follow up: Response: No adverse reaction aa9 Disposition Summary: 12/02/22 01:03 Discharge Ordered Location: Home kb Condition: Stable kb Diagnosis - Upper abdominal pain, unspecified kb - Other ovarian cysts kb Followup: kb - With: Emergency Department - When: As needed - Reason: Worsening of condition Followup: kb - With: Private Physician - When: 2 - 3 days - Reason: Recheck today's complaints, Continuance of care, Re-evaluation by your physician Discharge Instructions: - Discharge Summary Sheet kb - Abdominal Pain, Adult, [id number] kb Forms: - Medication Reconciliation Form kb - Thank You Letter kb - Antibiotic Education kb - Prescription Opioid Use kb Prescriptions: - Zofran 4 mg Oral Tablet - take 1 tablet by ORAL route every 8 hours As needed; 12 tablet; Refills: 0, kb Product Selection Permitted - dicyclomine 20 mg Oral Tablet - take 1 tablet by ORAL route 4 times per day As needed; 20 tablet; Refills: 0, kb Product Selection Permitted Signatures: Dispatcher [employer] EDMS Haven Mclean, Monika Rebolledo RN RN ll3 Bhavya Parker, RN RN aa9 Corrections: (The following items were deleted from the chart) 01:02 12/01 23:29 Abdomen/GI: Inspection: abdomen appears normal, Bowel sounds: normal, kb Palpation: soft, in all quadrants, moderate abdominal tenderness, in the left upper quadrant and left lower quadrant, kb
== END 2022-12-02 01:26 | disposition home or self-care (01) ==
LOC: ER 22:06
DX: N83.209 Unspecified ovarian cyst, unspecified side (principal); I10 Essential (primary) hypertension
CPT/HCPCS: 36415; 74177; 80053; 81003; 81025; 83690; 85025; 96361; 96374; 96375; 99284; Q9967

== ENCOUNTER 2022-12-25 08:18 | Emergency (ER) | payer SELFPAY ==
[2022-12-25] MEDS ORDERED: ONDANSETRON 4 MG/2 ML VIAL ONE (08:51)
[2022-12-25] MEDS ORDERED: MORPHINE 2 MG/ML SYR ONE ×2 (08:51→10:22)
[2022-12-25 08:52] LABS: Specific Gravity 1.019 (1.005-1.030)
[2022-12-25 08:57] LABS: Specific Gravity 1.019 (1.005-1.030); Urine Bacteria 20-50 /HPF (<20); Urine Bilirubin NEGATIVE (Negative); Urine Blood 3+ (Negative); Urine Clarity Extremely Turbid (Clear); Urine Color Light-Orange (Yellow); Urine Glucose NEGATIVE (Negative); Urine Mucus 4+ /HPF (None Seen); Urine Protein 2+ (Negative); Urine RBC 21-50 /HPF (None Seen); Urine Urobilinogen Normal (Normal); Urine WBC Clump Many /HPF (None Seen); Urine pH 6.5 (5.0-7.0)
[2022-12-25 09:01] LABS: Absolute Lymphocytes (CBC) 1.7 K/uL (0.7-4.9); Hematocrit 38.2 % (36.0-45.0); Lymphocytes % 19.5 % (15.3-44.8); MCV 75.8 fL (80-100); MPV 7.2 fL (7.6-11.3); RBC Red Blood Cell Count 5.04 M/uL (3.86-4.86)
[2022-12-25 09:25] LABS: Albumin 3.4 g/dL (3.4-5.0); Bilirubin Total 0.6 mg/dL (0.2-1.0); Potassium 3.1 mEq/L (3.5-5.1); Protein, Total 7.3 g/dL (6.4-8.2)
--- NOTE | 2022-12-25 09:48 | RAD REPORT ---
EXAM DESCRIPTION: CT - Abdomen Pelvis W Contrast - 12/25/2022 9:27 am CLINICAL HISTORY: Abdominal pain COMPARISON: December 01, 2022 TECHNIQUE: Computed axial tomography of the abdomen pelvis was obtained. 100 cc Isovue-300 was admin istered intravenously. Oral contrast was not requested which limits evaluation of bowel and appendix All CT scans are performed using dose optimization technique as appropriate and may include automated exposure control or mA/KV adjustment according to patient size. FINDINGS: The liver, spleen, pancreas, adrenal and kidneys appear unremarkable. Cholecystectomy There is no evidence of diverticulitis. A 4 centimeter right ovarian cyst. Multiple cystic masses are present within the cervix measuring up to 1.6 centimeters. IMPRESSION: Multiple cystic masses are present within the cervix measuring up to 1.6 centimeters. Th is may represent adenoma malignum were nabothian cysts. 4 centimeter right ovarian cyst without significant free fluid
[2022-12-25] MEDS ORDERED: KETOROLAC 30 MG/ML INJ ONE ×2 (10:22→10:28)
[2022-12-25] MEDS ORDERED: CEFTRIAXONE 2000 MG/VIAL ONE (10:22)
--- NOTE | 2022-12-25 10:43 | EDPHYS ---
Physician Documentation [facility] Name: Camila Oneil Age: 42 yrs Sex: Female : 1980 Arrival Date: 12/25/2022 Time: 08:21 Bed 20 Private MD: ED Physician Jad Sorenson HPI: 12/25 08:31 This 42 yrs old Female presents to ER via Ambulatory with complaints of Back jm Pain, Urinary Problem. 08:31 Is a 42-year-old female with history of hypertension and migraines that presents jmm emerged part with complaints of dysuria beginning proxy 2 days ago without relief from [id number] medication. Denies any vomiting but states having some nausea. Pain radiates from the lower pelvis to the back. Denies fever but states having chills.. Historical: - Allergies: 08:28 No Known Drug Allergies; ll1 - PMHx: 08:28 Hypertensive disorder; Migraines; ll1 - PSHx: 08:28 section; Cholecystectomy; ll1 - Immunization history:: Client reports receiving the 2nd dose of the Covid vaccine. - Social history:: Smoking status: Patient/guardian denies using tobacco, Stopped _ months ago 9. ROS: 08:31 Constitutional: Positive for body aches, chills. jmm 08:31 Back: Positive for radiated pain. 08:31 : Positive for urinary symptoms, pelvic pain. 08:31 All other systems are negative. Exam: 08:31 Constitutional: This is a well developed, well nourished patient who is awake, alert, jmm and in no acute distress. Head/Face: atraumatic. Eyes: EOMI, no conjunctival erythema appreciated ENT: Moist Mucus Membranes Neck: Trachea midline, Supple Chest/axilla: Normal chest wall appearance and motion. Cardiovascular: Regular rate and rhythm. No edema appreciated Respiratory: Normal respirations, no respiratory distress appreciated Abdomen/GI: Non distended Back: Normal ROM Skin: General appearance color normal MS/ Extremity: Moves all extremities, no obvious deformities appreciated, no edema noted to the lower extremities Neuro: Awake and alert Psych: Behavior is normal, Mood is normal, Patient is cooperative and pleasant Vital Signs: 08:29 BP 120 / 86; Pulse 115; Resp 16; Temp 97.8; Pulse Ox 98% ; Weight 72.57 kg; Height 5 ll1 ft. 1 in. ; Pain 10/10; 09:05 BP 115 / 74; Pulse 101; Resp 15; Pulse Ox 99% on R/A; hb 10:25 BP 106 / 70; Pulse 102; Resp 16; Pulse Ox 100% on R/A; hb 08:29 Body Mass Index 30.23 (72.57 kg, 154.94 cm) ll1 08:29 Pain Scale: Adult ll1 MDM: 08:31 Patient medically screened. lorri 18:28 Differential diagnosis: UTI, pyelonephritis, ovarian cyst. Data reviewed: vital signs, [facility] nurses notes, lab test result(s), radiologic studies, CT scan. I considered the following discharge prescriptions or medication management in the emergency department Medications were administered in the Emergency Department. See MAR. Counseling: I had a detailed discussion with the patient and/or guardian regarding: the historical points, exam findings, and any diagnostic results supporting the discharge/admit diagnosis, lab results, radiology results, the need for outpatient follow up, to return to the emergency department if symptoms worsen or persist or if there are any questions or concerns that arise at home. ED course: I discussed CT imaging results with the patient. This included possibility of cancer. Patient agrees to follow-up with [facility] for further evaluation otherwise given strict return precautions. Patient understood agrees plan of care peer. 12/25 08:35 Order name: Urinalysis w/ reflexes; Complete Time: 09:05 [facility] 12/25 08:35 Order name: PREGU; Complete Time: 08:59 [facility] 12/25 08:43 Order name: CBC with Diff; Complete Time: 09:15 [facility] 12/25 08:43 Order name: CMP; Complete Time: 09:25 [facility] 12/25 08:43 Order name: Lipase; Complete Time: 09:25 [facility] 12/25 09:07 Order name: Urine Culture [facility] 12/25 08:43 Order name: CT Abd/Pelvis - IV Contrast Only; Complete Time: 09:51 [facility] 12/25 08:43 Order name: IV Saline Lock; Complete Time: 08:59 [facility] 12/25 08:43 Order name: Labs collected and sent; Complete Time: 08:59 [facility] Administered Medications: 08:59 Drug: morphine IVP or IV 2 mg Route: IVP; Infused Over: 4 mins; Site: right antecubital;hb 10:25 Follow up: Response: No adverse reaction hb 08:59 Drug: Ondansetron IVP 4 mg Route: IVP; Site: right antecubital; hb 10:25 Follow up: Response: No adverse reaction hb 10:24 Drug: Rocephin IV 2 grams Route: IV; Rate: calculated rate; Site: right antecubital; hb 10:25 Drug: Ketorolac IVP 30 mg Route: IVP; Site: right antecubital; hb 10:25 Drug: morphine IVP or IV 2 mg Route: IVP; Infused Over: 4 mins; Site: right antecubital;hb Disposition Summary: 12/25/22 10:43 Discharge Ordered Location: Home [facility] Condition: Stable [facility] Diagnosis - UTI/ Urinary tract infection, site not specified jm - Pelvic and perineal pain [facility] Followup: [facility] - With: Carmita Larios MD - When: 2 - 3 days - Reason: Recheck today's complaints, Continuance of care, Re-evaluation by your physician Followup: [facility] - With: Private Physician - When: 1 - 2 days - Reason: Recheck today's complaints, Continuance of care, Re-evaluation by your physician Discharge Instructions: - Discharge Summary Sheet [facility] - Urinary Tract Infection, Adult [facility] Forms: - Medication Reconciliation Form [facility] - Thank You Letter [facility] - Antibiotic Education [facility] - Prescription Opioid Use [facility] Prescriptions: - Ultracet 37.5-325 mg Oral Tablet - take 1 tablet by ORAL route every 6 hours - for up to 5 days; do not exceed 8 jmm tablets per day.; 30 tablet; Refills: 0, Product Selection Permitted - cefpodoxime 200 mg Oral Tablet - take 1 tablet by ORAL route every 12 hours for 10 days with food; 20 tablet; m Refills: 0, Product Selection Permitted Addendum: 01/13/2023 16:35 Co-signature as Attending Physician, Jad Sorenson MD I agree with the assessment and c terry plan of care. Signatures: Dispatcher [employer] Jad Suggs MD MD cha Mickail, Joel, PA PA jmm Baxter, Heather, RN RN Leonardo Tirado RN RN ll1
--- NOTE | 2022-12-25 10:43 | ER ---
Nurse's Notes [facility] Name: Camila Oneil Age: 42 yrs Sex: Female : 1980 Arrival Date: 12/25/2022 Time: 08:21 Bed 20 Private MD: Diagnosis: UTI/ Urinary tract infection, site not specified;Pelvic and perineal pain Presentation: 12/25 08:29 Chief complaint: Patient states: Dysuria, R sided pelvic and R back pain for 3 days. + ll1 N/V. Coronavirus screen: Vaccine status: Patient reports receiving the 2nd dose of the covid vaccine. Client denies travel out of the [place] in the last 14 days. At this time, the client does not indicate any symptoms associated with coronavirus-19. Ebola Screen: Patient denies travel to an Ebola-affected area in the 21 days before illness onset. Initial Sepsis Screen: Does the patient meet any 2 criteria? No. Patient's initial sepsis screen is negative. Does the patient have a suspected source of infection? Yes: Dysuria/Frequency/Urgency/UTI. Risk Assessment: Do you want to hurt yourself or someone else? Patient reports no desire to harm self or others. Onset of symptoms was December 23, 2022. 08:29 Method Of Arrival: Ambulatory ll1 08:29 Acuity: RUFINO 3 ll1 Historical: - Allergies: 08:28 No Known Drug Allergies; ll1 - PMHx: 08:28 Hypertensive disorder; Migraines; ll1 - PSHx: 08:28 section; Cholecystectomy; ll1 - Immunization history:: Client reports receiving the 2nd dose of the Covid vaccine. - Social history:: Smoking status: Patient/guardian denies using tobacco, Stopped _ months ago 9. Screenin:04 [facility] ED Fall Risk Assessment (Adult) Score/Fall Risk Level 0 - 2 = Low Risk hb Oriented to surroundings, Maintained a safe environment, Educated pt \T\ family on fall prevention, incl call for assistance when getting out of bed. Abuse screen: Denies threats or abuse. Denies injuries from another. Nutritional screening: No deficits noted. Tuberculosis screening: No symptoms or risk factors identified. Assessment: 09:06 General: Appears in no apparent distress. uncomfortable, Behavior is calm, cooperative. hb Pain: Pain currently is 10 out of 10 on a pain scale. Neuro: Level of Consciousness is Oriented to. Vital Signs: 08:29 BP 120 / 86; Pulse 115; Resp 16; Temp 97.8; Pulse Ox 98% ; Weight 72.57 kg; Height 5 ll1 ft. 1 in. ; Pain 10/10; 09:05 BP 115 / 74; Pulse 101; Resp 15; Pulse Ox 99% on R/A; hb 10:25 BP 106 / 70; Pulse 102; Resp 16; Pulse Ox 100% on R/A; hb 08:29 Body Mass Index 30.23 (72.57 kg, 154.94 cm) ll1 08:29 Pain Scale: Adult ll1 ED Course: 08:21 Patient arrived in ED. mr 08:23 Ozzy Carroll PA is PHCP. jmm 08:23 Jad Sorenson MD is Attending Physician. jmm 08:28 Arm band placed on Patient placed in an exam room, on a stretcher. ll1 08:30 Triage completed. ll1 08:31 Maya Strange, SADAF is Primary Nurse. hb 08:43 PREGU Sent. hb 08:43 Urinalysis w/ reflexes Sent. hb 08:58 Initial lab(s) drawn, by me, sent to lab. Inserted saline lock: 20 gauge in right hb antecubital area, using aseptic technique. Blood collected. 08:59 Lipase Sent. hb 08:59 CMP Sent. hb 08:59 CBC with Diff Sent. hb 09:29 CT Abd/Pelvis - IV Contrast Only In Process Unspecified. EDMS 10:42 Carmita Larios MD is Referral Physician. m 10:46 Referral Physician role handed off by Carmita Larios MD jmm 11:04 Patient has correct armband on for positive identification. hb 11:04 No provider procedures requiring assistance completed. IV discontinued, intact, hb bleeding controlled, No redness/swelling at site. Administered Medications: 08:59 Drug: morphine IVP or IV 2 mg Route: IVP; Infused Over: 4 mins; Site: right antecubital;hb 10:25 Follow up: Response: No adverse reaction hb 08:59 Drug: Ondansetron IVP 4 mg Route: IVP; Site: right antecubital; hb 10:25 Follow up: Response: No adverse reaction hb 10:24 Drug: Rocephin IV 2 grams Route: IV; Rate: calculated rate; Site: right antecubital; hb 10:25 Drug: Ketorolac IVP 30 mg Route: IVP; Site: right antecubital; hb 10:25 Drug: morphine IVP or IV 2 mg Route: IVP; Infused Over: 4 mins; Site: right antecubital;hb Medication: 11:04 VIS not applicable for this client. hb Outcome: 10:43 Discharge ordered by MD. thompson 11:03 Discharged to home ambulatory. hb 11:03 Condition: stable 11:03 Discharge instructions given to patient, Instructed on discharge instructions, follow up and referral plans. medication usage, Demonstrated understanding of instructions, follow-up care, medications, Prescriptions given X 2. 11:12 Patient left the ED. hb Signatures: Dispatcher [employer] EDMS Ozzy Carroll PA PA jmm Rivera, Mary Maya Strange RN RN Leonardo Parker RN RN ll1
[2022-12-25 11:19] VITALS: TEMP 97.8
[2022-12-25 11:22] VITALS: BP 106/70; O2SAT 100
== END 2022-12-25 11:12 | disposition home or self-care (01) ==
LOC: ER 08:18
DX: N39.0 Urinary tract infection, site not specified (principal); R10.2 Pelvic and perineal pain; R30.0 Dysuria; M54.50 Low back pain, unspecified; I10 Essential (primary) hypertension
CPT/HCPCS: 36415; 74177; 80053; 81001; 81025; 83690; 85025; 87077; 87086; 87088; 87186; 96374; 96375; 99284; J0696; J2270; J2405; Q9967

== ENCOUNTER 2025-06-25 18:49 | Observation (INO) | payer SELFPAY ==
[2025-06-25 20:08] LABS: Hematocrit 39.4 % (36.0-45.0); Hemoglobin 13.5 g/dL (12.0-15.0); MCH 28.0 pg (27.0-35.0); MCHC 34.1 g/dL (32.0-36.0); MCV 82.2 fL (80-100); MPV 7.5 fL (7.6-11.3); Nucleated Red Blood Cells % 0.0 % (0-0); RBC Red Blood Cell Count 4.80 M/uL (3.86-4.86); White Blood Count 6.30 thou/uL (4.3-10.9)
--- NOTE | 2025-06-25 20:08 | RAD REPORT ---
Procedure: Chest Single View HISTORY: Chest pain COMPARISON: 2013 FINDINGS: The lungs appear clear of acute infiltrate. No significant pleural effusion noted. The heart is normal size. IMPRESSION: No acute abnormality is displayed.
[2025-06-25 20:09] LABS: Absolute Lymphocytes (CBC) 2.3 K/uL (0.7-4.9); Nucleated RBC Absolute Count 0.0 (0-0)
[2025-06-25] MEDS ORDERED: KETOROLAC 30 MG/ML INJ ONE (20:24)
[2025-06-25 20:25] LABS: Urine Culture Reflex Order NOT NEEDED; Urine Microscopic Reflex YN ORDER UMIC
[2025-06-25 20:37] LABS: ALT/SGPT 29 U/L (13-56); AST/SGOT 19 U/L (15-37); Albumin 3.2 g/dL (3.4-5.0); Albumin/Globulin Ratio 0.9 (1.1-1.8); Alkaline Phosphatase 82 U/L (45-117); Anion Gap 7.6 mEq/L (5.0-15.0); BUN Blood Urea Nitrogen 14 mg/dL (7-18); Globulin 3.7 g/dL (2.3-3.5); Glucose Level 103 mg/dL (74-106); Magnesium 2.3 mg/dL (1.6-2.4); NT PRO-BNP 9 pg/mL (<125); Potassium 3.6 mEq/L (3.5-5.1); Troponin High Sensitivity 42.1 pg/mL (<58.9)
[2025-06-25 20:41] LABS: Bilirubin Indirect, Calculated 0.1 mg/dL (0.2-0.8)
--- NOTE | 2025-06-25 21:05 | EDPHYS ---
Physician Documentation [facility] Name: Camila Oneil Age: 45 yrs Sex: Female : 1980 Arrival Date: 06/25/2025 Time: 18:49 Bed IW10 Private MD: ED Physician Tito Mendoza HPI: 06/25 21:02 This 45 yrs old Female presents to ER via Ambulatory with complaints of Chest kb Pain - X4DAYS, Back Pain. 21:02 Patient is a 45-year-old female with a history of hypertension who presents for kb left-sided chest pain and right low back pain that started 4 days ago. States chest pain has been constant and today it became worse when she moved or pushed on it. Denies cough, congestion, shortness of breath. Denies any urinary symptoms.. EPIC AMBULATORY ANALYSTS: 19:20 Not kb4 Historical: - Allergies: 19:20 No Known Allergies; kb4 - PMHx: 19:20 Hypertensive disorder; Migraines; kb4 - PSHx: 19:20 Cholecystectomy; section; kb4 - Immunization history:: Adult Immunizations up to date. - Infectious Disease History:: Denies. - Social history:: Smoking status: Patient denies any tobacco usage or history of. Patient uses alcohol, occasionally. ROS: 19:40 Constitutional: As per HPI kb Exam: 19:40 Constitutional: This is a well developed, well nourished patient who is awake, alert, kb and in no acute distress. Head/Face: Normocephalic, atraumatic. ENT: Moist Mucous membranes Cardiovascular: Regular rate Respiratory: Respirations even and unlabored. No increased work of breathing. Talking in full sentences Abdomen/GI: Soft, non-tender. No distention Skin: Warm, dry with normal turgor. Normal color. MS/ Extremity: Pulses equal, no cyanosis. Neurovascular intact. Full, normal range of motion. Neuro: Awake and alert, GCS 15, oriented to person, place, time, and situation. 19:40 Chest/axilla: Palpation: tenderness, that is moderate, of the anterior aspect of left upper chest, that totally reproduces the patient's complaints, 19:40 ECG was reviewed by the Attending Physician. 19:40 Back: pain, that is moderate, of the right low back, Vital Signs: 19:17 BP 121 / 97; Pulse 95; Resp 18; Temp 97.4; Pulse Ox 99% ; Weight 74.84 kg; Height 5 ft. kb4 1 in. ; Pain 10/10; 20:36 BP 121 / 84; Pulse 87; Resp 16; Pulse Ox 99% on R/A; jb4 21:53 BP 125 / 92; Pulse 87; Resp 16; Pulse Ox 99% on R/A; Pain 7/10; jb4 23:25 BP 131 / 83; Pulse 92; Resp 19; Pulse Ox 98% on R/A; jb4 19:17 Body Mass Index 31.18 (74.84 kg, 154.94 cm) kb4 19:17 Pain Scale: Adult kb4 21:53 Pain Scale: Adult jb4 MDM: 18:58 Medical Screening Exam initiated kb 21:03 Differential diagnosis: Acute CT, CAD, arrhythmia, UTI. Data reviewed: vital signs, kb nurses notes. Consideration of Admission/Observation Patient was admitted/placed on observation. Escalation of care including admission/observation considered. Management of patient was discussed with the following: Hospitalist: DILCIA Hernandez accepts patient for admission under Dr. Abrams. Scoring Tools HEART Score: Total Score = 3. Counseling: I had a detailed discussion with the patient and/or guardian regarding the historical points, exam findings, and any diagnostic results supporting the discharge/admit diagnosis, lab results, radiology results, the need for further work-up and treatment in the hospital. 06/25 19:29 Order name: Basic Metabolic Panel; Complete Time: 20:42 kb 06/25 19:29 Order name: CBC with Diff; Complete Time: 20:45 kb 06/25 19:29 Order name: LFT's; Complete Time: 20:42 kb 06/25 19:29 Order name: Magnesium; Complete Time: 20:42 kb 06/25 19:29 Order name: NT PRO-BNP; Complete Time: 20:42 kb 06/25 19:29 Order name: Troponin HS; Complete Time: 20:42 kb 06/25 19:29 Order name: UA Rfx Mushtaq Cult if indicated; Complete Time: 20:42 kb 06/25 22:24 Order name: Test, Urine; Complete Time: 22:36 kb 06/26 00:37 Order name: Basic Metabolic Panel EDMS 06/26 00:37 Order name: Basic Metabolic Panel EDMS 06/26 00:37 Order name: Basic Metabolic Panel EDMS 06/26 00:37 Order name: CBC with Automated Diff EDMS 06/26 00:37 Order name: CBC with Automated Diff EDMS 06/26 00:37 Order name: CBC with Automated Diff EDMS 06/26 00:37 Order name: Troponin High Sensitivity EDMS 06/26 00:37 Order name: Troponin High Sensitivity EDMS 06/26 00:37 Order name: Troponin High Sensitivity EDMS 06/26 00:37 Order name: Troponin High Sensitivity EDMS 06/26 00:37 Order name: Troponin High Sensitivity EDMS 06/25 19:29 Order name: XRAY Chest (1 view); Complete Time: 20:08 kb 06/25 22:23 Order name: CT Chest For PE Angio kb 06/25 22:23 Order name: CT Abd/Pelvis - IV Contrast Only kb 06/26 00:37 Order name: Echo with Doppler EDMS 06/26 00:37 Order name: EKG Electrocardiogram EDMS 06/26 00:37 Order name: EKG Electrocardiogram EDMS 06/26 00:37 Order name: EKG Electrocardiogram EDMS 06/26 00:37 Order name: EKG Electrocardiogram EDMS 06/25 19:29 Order name: Cardiac monitoring; Complete Time: 19:34 kb 06/25 19:29 Order name: EKG - Nurse/Tech; Complete Time: 19:34 kb 06/25 19:29 Order name: IV Saline Lock; Complete Time: 20:10 kb 06/25 19:29 Order name: Labs collected and sent; Complete Time: 20:10 kb 06/25 19:29 Order name: O2 Per Protocol; Complete Time: 19:34 kb 06/25 19:29 Order name: O2 Sat Monitoring; Complete Time: 19:34 kb EC:40 Rate is 95 beats/min. Rhythm is regular. QRS [place] is Normal. [place] interval is normal at kb 162 msec. QRS interval is normal at 76 msec. QT interval is normal at 452 msec. Administered Medications: 20:37 Drug: Ketorolac IVP 15 mg IVP once Route: IVP; Site: right antecubital; jb4 21:00 Follow up: Response: (VIS) Vaccine information sheet provided today. Questions and/or jb4 concerns addressed. VIS edition date: May 02, 2021.; Marked relief of symptoms; Pain is decreased 23:25 Drug: HYDROcodone-acetaminophen PO 5 mg-325 mg 1 tabs PO once Route: PO; jb4 06/26 00:54 Follow up: Response: No adverse reaction; Marked relief of symptoms; Pain is decreased jb4 Disposition Summary: 06/25/25 21:04 Hospitalization Ordered Notes: Hospitalization Status: Observation kb Provider: Negra Abrams Location: Telemetry/MedSurg (observation) kb Condition: Stable kb Problem: new kb Symptoms: are unchanged kb Bed/Room Type: Standard Room Assignment: 212(06/25/25 22:20) br2 Diagnosis - Chest pain, unspecified kb Forms: - Medication Reconciliation Form kb - SBAR form kb - Leadership Thank You Letter kb Signatures: Dispatcher [employer] EDMS Haven Mclean, CATEGORY DEVELOPMENT ANALYST-C CATEGORY DEVELOPMENT ANALYST-CkJosue Owusu, RN RN jb4 Maryann Ramírez RN RN br2 Liliane Hester RN RN kb4 Corrections: (The following items were deleted from the chart) 06/25 19:30 19:30 Chest Single View+RAD.RAD.BRZ ordered. EDMS EDMS 22:20 21:04 kb br2 22:24 22:24 Test, Urine+UC.LAB.BRZ ordered. EDMS EDMS
--- NOTE | 2025-06-25 21:05 | ER ---
Nurse's Notes [facility] Name: Camila Oneil Age: 45 yrs Sex: Female : 1980 Arrival Date: 06/25/2025 Time: 18:49 Bed IW10 Private MD: Diagnosis: Chest pain, unspecified Presentation: 06/25 19:17 Chief complaint: Patient states: R lower back pain \T\ L chest pain x 4 days. Coronavirus kb4 screen: At this time, the client does not indicate any symptoms associated with coronavirus-19. Ebola Screen: No symptoms or risks identified at this time. Initial Sepsis Screen: Does the patient meet any 2 criteria? No. Patient's initial sepsis screen is negative. Does the patient have a suspected source of infection? No. Patient's initial sepsis screen is negative. Risk Assessment: Do you want to hurt yourself or someone else? Patient reports no desire to harm self or others. Onset of symptoms was June 23, 2025. 19:17 Method Of Arrival: Ambulatory kb4 19:17 Acuity: RUFINO 2 kb4 Triage Assessment: 19:20 General: Appears in no apparent distress. comfortable, Behavior is calm, cooperative. kb4 Pain: Complains of pain in right low back. Cardiovascular: Chest pain quality is pressure, sharp. 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 - Infectious Disease History:: Denies. - Social history:: Smoking status: Patient denies any tobacco usage or history of. Patient uses alcohol, occasionally. Screenin:09 [facility] ED Fall Risk Assessment (Adult) History of falling in the last 3 months, jb4 including since admission No falls in past 3 months (0 pts) Confusion or Disorientation No (0 pts) Intoxicated or Sedated No (0 pts) Impaired Gait No (0 pts) Mobility Assist Device Used No (0 pt) Altered Elimination No (0 pt) Score/Fall Risk Level 0 - 2 = Low Risk Oriented to surroundings, Maintained a safe environment. Abuse screen: Denies threats or abuse. Nutritional screening: No deficits noted. Tuberculosis screening: No symptoms or risk factors identified. Assessment: 20:09 General: Appears in no apparent distress. uncomfortable, Behavior is calm, cooperative, jb4 appropriate for age. Pain: Complains of pain in right low back and left breast Pain does not radiate. Pain currently is 10 out of 10 on a pain scale. Pain began 4 days ago. Neuro: Level of Consciousness is awake, alert, obeys commands, Oriented to person, place, time, situation. Cardiovascular: Patient's skin is warm and dry. Respiratory: Airway is patent Respiratory effort is even, unlabored, Respiratory pattern is regular, symmetrical. Derm: Skin is intact, Skin is pink, warm \T\ dry. Musculoskeletal: Circulation, motion, and sensation intact. Range of motion: intact in all extremities. 20:36 Reassessment: Patient appears in no apparent distress at this time. Patient and/or jb4 family updated on plan of care and expected duration. Pain level reassessed. Patient is alert, oriented x 3, equal unlabored respirations, skin warm/dry/pink. 21:53 Reassessment: Patient appears in no apparent distress at this time. Patient and/or jb4 family updated on plan of care and expected duration. Pain level reassessed. Patient is alert, oriented x 3, equal unlabored respirations, skin warm/dry/pink. Patient states feeling better. 23:20 Reassessment: Patient appears in no apparent distress at this time. Patient and/or jb4 family updated on plan of care and expected duration. Pain level reassessed. Patient is alert, oriented x 3, equal unlabored respirations, skin warm/dry/pink. Vital Signs: 19:17 BP 121 / 97; Pulse 95; Resp 18; Temp 97.4; Pulse Ox 99% ; Weight 74.84 kg; Height 5 ft. kb4 1 in. ; Pain 10/10; 20:36 BP 121 / 84; Pulse 87; Resp 16; Pulse Ox 99% on R/A; jb4 21:53 BP 125 / 92; Pulse 87; Resp 16; Pulse Ox 99% on R/A; Pain 7/10; jb4 23:25 BP 131 / 83; Pulse 92; Resp 19; Pulse Ox 98% on R/A; jb4 19:17 Body Mass Index 31.18 (74.84 kg, 154.94 cm) kb4 19:17 Pain Scale: Adult kb4 21:53 Pain Scale: Adult jb4 ED Course: 18:56 Patient arrived in ED. cj3 18:58 Haven Mclean FNP-C is [facility]. kb 18:58 Tito Mendoza MD is Attending Physician. kb 19:20 Triage completed. kb4 19:20 Arm band placed on right wrist. kb4 19:22 Liliane Hester, RN is Primary Nurse. kb4 19:34 EKG completed in triage. Results shown to MD. kb4 20:01 XRAY Chest (1 view) In Process Unspecified. EDMS 20:02 Initial lab(s) drawn, by laborer [employer], sent to lab. ts3 20:09 Patient has correct armband on for positive identification. Bed in low position. Call jb4 light in reach. Side rails up X 1. Provided Education on: plan of care. Client placed on continuous cardiac and pulse oximetry monitoring. NIBP monitoring applied. service officer on. Pulse ox on. 20:09 Patient maintains SpO2 saturation greater than 95% on room air. jb4 20:10 Inserted saline lock: 20 gauge in right antecubital area, using aseptic technique. ts3 Blood collected. Flushed with 10 mL NS. 20:15 Urine collected: clean catch specimen, sent to lab. ts3 21:04 Emerson Abrams is Hospitalizing Provider. kb 21:04 Negra Abrams MD is Hospitalizing Provider. kb 22:52 CT Chest For PE Angio In Process Unspecified. EDMS 22:52 CT Abd/Pelvis - IV Contrast Only In Process Unspecified. EDMS 06/26 00:54 No provider procedures requiring assistance completed. Patient admitted, IV remains in jb4 place. Administered Medications: 06/25 20:37 Drug: Ketorolac IVP 15 mg IVP once Route: IVP; Site: right antecubital; jb4 21:00 Follow up: Response: (VIS) Vaccine information sheet provided today. Questions and/or 4 concerns addressed. VIS edition date: May 02, 2021.; Marked relief of symptoms; Pain is decreased 23:25 Drug: HYDROcodone-acetaminophen PO 5 mg-325 mg 1 tabs PO once Route: PO; jb4 06/26 00:54 Follow up: Response: No adverse reaction; Marked relief of symptoms; Pain is decreased jb Medication: 06/25 20:09 VIS not applicable for this client. jb4 Outcome: 21:04 Decision to Hospitalize by Provider. bárbara 06/26 00:54 Admitted to Med/surg accompanied by nurse, via wheelchair, room 212, with chart, jb4 Condition: stable Discharge instructions given to patient, Instructed on the need for admit, Demonstrated understanding of instructions, 00:55 Patient left the ED. jb4 Signatures: Dispatcher [employer] EDHaven Garcias, DUPLICATE MAKER-C DUPLICATE MAKER-Josue Castillo, RN RN jb4 Liliane Hester RN RN kb4 Nisha Valadez cj3 Delaney Spaulding 3
[2025-06-25] MEDS ORDERED: HYDROCODONE/APAP 5/325 MG TAB ONE (23:24)
--- NOTE | 2025-06-26 00:15 | RAD REPORT ---
EXAM: CT Angiography Chest With Intravenous Contrast CLINICAL HISTORY: CHEST PAIN TECHNIQUE: Axial computed tomographic angiography images of the chest with intravenous contrast. Sagittal and coronal reformatted images were created and reviewed. This CT exam was performed using one or more of the following dose reduction techniques: automated exposure control, adjustment of the mA a nd/or kV according to patient size, and/or use of iterative reconstruction technique. MIP reconstructed images were created and reviewed. COMPARISON: No relevant prior studies available. FINDINGS: Pulmonary arteries: Unremarkable. No pulmonary embolism. Aorta: No acute findings. No thoracic aortic aneurysm. Lungs and pleural spaces: Scattered bilateral subsegmental atelectasis/pleural parenchymal scar. Fa int patchy predominantly dependent left lower lobe groundglass opacities. Heart: Unremarkable. No cardiomegaly. No significant pericardial effusion. No evidence of RV dysfunction. Bones/joints: No acute fracture. No dislocation. Soft tissues: Unremarkable. Lymph nodes: Unremarkable. No enlarged lymph nodes. * A single impression for all exams can be found at the end of this report EXAM: CT Abdomen and Pelvis With Intravenous Contrast CLINICAL HISTORY: FLANK PAIN TECHNIQUE: Axial computed tomography images of the abdomen and pelvis with intravenous contrast. Sagittal and coronal reformatted images were created and reviewed. This CT exam was performed using one or more of the following dose reduction techniques: automated exposure control, adjustment of the mA a nd/or kV according to patient size, and/or use of iterative reconstruction technique. COMPARISON: No relevant prior studies available. FINDINGS: ABDOMEN: Liver: The liver is diffusely low in density with steatosis. Gallbladder and bile ducts: There has been a cholecystectomy. No ductal dilation. Pancreas: Unremarkable. No mass. No ductal dilation. Spleen: Unremarkable. No splenomegaly. Adrenals: Unremarkable. No mass. Kidneys and ureters: Normal renal cortical enhancement. No calculi. No hydronephrosis. Stomach and bowel: Moderate stool. No bowel obstruction. No mucosal thickening. PELVIS: Appendix: Normal caliber appendix. No findings to suggest acute appendicitis. Bladder: The urinary bladder is decompressed. Reproductive: Nabothian cysts at the level of the cervix. Bilateral ovarian cysts measuring 3.6 cm on the left and 2.1 cm on the right. ABDOMEN and PELVIS: Intraperitoneal space: Unremarkable. No free air. No significant fluid collection. Bones/joints: No acute fracture. No dislocation. Soft tissues: Unremarkable. Vasculature: Unremarkable. No abdominal aortic aneurysm. Lymph nodes: Unremarkable. No enlarged lymph nodes. * A single impression for all exams can be found at the end of this report IMPRESSION: CT Angiography Chest With Intravenous Contrast: 1. No pulmonary embolic disease. 2. Faint patchy predominantly dependent left lower lobe groundglass opacities (atelectasis and/or i nfiltrate). 3. Other findings as above. CT Abdomen and Pelvis With Intravenous Contrast: 1. No renal, ureteral or bladder calculi. No evidence for renal obstruction. 2. Bilateral ovarian cysts measuring 3.6 cm on the left and 2.1 cm on the right. No follow-up imagi ng is recommended. Reference: JACR 2019;17(2):248-254 3. Other findings as above. Electronically signed by: Leigh Ann Edge MD 06/26/2025 12:09 AM CDT RP Due to temporary technical issues with the PACS/EveryRack reporting system, reports are being austyn d by the in-house radiologist without review as a courtesy to ensure prompt reporting the interpreting radiologist is fully responsible for the content of the report. Transcribed Date/Time: 06/26/2025 7:13 AM
[2025-06-26] MEDS ORDERED: ACETAMINOPHEN 500 MG TAB PO PRN (00:30)
[2025-06-26] MEDS ORDERED: NITROGLYCERIN 0.4 MG/TAB SL PRN (00:30)
[2025-06-26] MEDS: MORPHINE 4 MG/ML SYR IV PRN (01:10)
[2025-06-26 01:44] VITALS: BMI 31.1
--- NOTE | 2025-06-26 07:00 | P.HP ---
Certification for Inpatient Patient admitted to: Observation With expected LOS: <2 Midnights Patient will require the following post-hospital care: None Practitioner: I am a practitioner with admitting privileges, knowledge of patient current condition, hospital course, and medical plan of care. Services: Services provided to patient in accordance with Admission requirements found in Title 42 Section 412.3 of the Code of Federal Regulations Patient History Date of Service: 06/25/25 Reason for admission: Chest pain. History of Present Illness: Patient is a pleasant 45-year-old female with past medical history of essential hypertension, migraine headache, kidney stones, who presents to the ER today complaining of severe chest pain radiating to her left upper back, with associated mild shortness of breath. Patient states she started having intermittent chest pain for the past 4 days, states at the time her chest pain was mild, states today she had a severe and consistent chest pain radiating to her left upper back, describes the pain as tight, sharp, and pressure type of pain which then prompted her to report to the ER. States she had similar chest pain in February but it was not as severe like it was today. Patient states the chest pain is also associated with mild shortness of breath. Denies of nausea or vomiting, headaches, or abdominal pain. Course in ER. (1) chest x-ray. Impression: No acute abnormality is displayed. Allergies No Known Drug Allergies Allergy (Verified 06/26/25 01:27) Unknown Home Medications: Telmisartan/Hydrochlorothiazid [Telmisartan-Hctz 80-12.5 mg Tb] 1 each PO BEDTIME 06/26/25 - Past Medical/Surgical History Has patient received pneumonia vaccine in the past: No Diabetic: No -: Hypertension -: C section -: Gall bladder removal - Family History Grandfather -: Heart disease - Social History Smoking Status: Former smoker Alcohol use: Yes CD- Drugs: No Caffeine use: Yes Place of Residence: Home Review of Systems 10-point ROS is otherwise unremarkable Cardiovascular: Chest Pain Physical Examination - Vital Signs Temperature: 97.2 F Blood Pressure: 123/77 Pulse: 93 Respirations: 15 Pulse Ox (%): 96 - Physical Exam General: Alert, In no apparent distress, Oriented x3, Cooperative HEENT: Atraumatic, Normocephalic, PERRLA, Mucous membr. moist/pink, Sclerae nonicteric Neck: Supple, 2+ carotid pulse no bruit, No LAD, Without JVD or thyroid abnormality Respiratory: Clear to auscultation bilaterally, Normal air movement Cardiovascular: No edema, Normal pulses, Regular rate/rhythm, Normal S1 S2, Abnormal S3, No gallops, No rubs, No murmurs Capillary refill: <2 Seconds Gastrointestinal: Normal bowel sounds, Hypoactive, Soft and benign, Non- distended, W/out hepatomegaly, No ascites, No tenderness, No masses, No rebound, No guarding Musculoskeletal: No clubbing, No swelling, No contractures, No erythema, No tenderness, No warmth Integumentary: No rashes, No breakdown, No significant lesion, No tenderness/swelling, No erythema, No warmth, No cyanosis Neurological: Normal gait, Normal speech, Normal strength at 5/5 x4 extr, Normal tone, Sensation intact, Cranial nerves 3-12 intact, Normal reflexes 2+, Normal affect Lymphatics: No axilla or inguinal lymphadenopathy - Studies Laboratory Data (last 24 hrs) 06/25/25 06/25/25 20:02 20:02 WBC 6.30 Hgb 13.5 Hct 39.4 Plt Count 370 Sodium 140 Potassium 3.6 BUN 14 Creatinine 0.59 Glucose 103 Magnesium 2.3 Total Bilirubin 0.3 AST 19 ALT 29 Alkaline Phosphatase 82 Female Exam - Breasts Breasts: Normal configuration, Normal contours, Symmetrical Assessment and Plan - Plan Patient admitted observation with diagnosis of chest pain. (1)Chest pain. - Serial troponin x 3. -Morphine 4 mg IV as needed every 4 hours. -EKG every 8 hours x 3. -Consult data science and iot manager. -Nitro 0.4 mg sublingual. Acute 5 minutes x 3. -Order echocardiogram. (2) DVT prophylaxis. -Lovenox 40 mg subcu daily. (3)essential hypertension. -Patient home medication resumed. (4)Explained entire treatment plan to the patient, solicited questions answered and voiced understanding. Discharge Plan: Home Plan to discharge in: 48 Hours - Advance Directives Does patient have a Living Will: No Does patient have a Durable POA for Healthcare: No - Code Status/Comfort Care Code Status Assessed: Yes Code Status: Full Code Critical Care: Yes Time Spent Managing Pts Care (In Minutes): 44
[2025-06-26] MEDS: ENOXAPARIN 40 MG/0.4 ML SQ SCH (08:46)
[2025-06-26] MEDS: ASPIRIN EC 81 MG TAB PO SCH (08:46)
--- NOTE | 2025-06-26 09:58 | P.CNS ---
Date of Consult: 06/26/25 Chief Complaint: Chest pain. History of Present Illness: Patient with PMH of HTN, presented with chest pain, mid chest and left side, sharp, reproducible upon touching the chest that has been constant for the last 5 days, denies palpitations, no syncope, no breathing problems. Allergies No Known Drug Allergies Allergy (Verified 06/26/25 01:27) Unknown Home medications list reviewed: Yes Home Medications: Telmisartan/Hydrochlorothiazid [Telmisartan-Hctz 80-12.5 mg Tb] 1 each PO BEDTIME 06/26/25 - Past Medical/Surgical History Diabetic: No -: Hypertension -: C section -: Gall bladder removal - Family History Grandfather Medical History: Heart disease - Social History Smoking Status: Current some day smoker Alcohol use: Yes CD- Drugs: No Caffeine use: Yes Place of Residence: Home Review of Systems 10-point ROS is otherwise unremarkable Physical Examination Temp Pulse Resp BP Pulse Ox 97.9 F 78 15 104/68 96 06/26/25 08:00 06/26/25 08:00 06/26/25 09:05 06/26/25 08:00 06/26/25 08:00 General: Alert, In no apparent distress HEENT: Atraumatic, PERRLA, Mucous membr. moist/pink, EOMI, Sclerae nonicteric Neck: Supple, 2+ carotid pulse no bruit, No LAD, Without JVD or thyroid abnormality Respiratory: Clear to auscultation bilaterally, Normal air movement Cardiovascular: Regular rate/rhythm, Normal S1 S2 Gastrointestinal: Normal bowel sounds, No tenderness Musculoskeletal: No tenderness Integumentary: No rashes Neurological: Normal gait, Normal speech, Normal tone, Normal affect Lymphatics: No axilla or inguinal lymphadenopathy Laboratory Data (last 24 hrs) 06/25/25 06/25/25 20:02 20:02 WBC 6.30 Hgb 13.5 Hct 39.4 Plt Count 370 Sodium 140 Potassium 3.6 BUN 14 Creatinine 0.59 Glucose 103 Magnesium 2.3 Total Bilirubin 0.3 AST 19 ALT 29 Alkaline Phosphatase 82 - Problems (1) Chest pain Current Visit: Yes Status: Acute Plan: Atypical, cardiac enzymes are negative x2, get one more set if echo is normal then no further cardiac work up needed. Outpatient follow up with PCP and cardiology is recommended. (2) HTN (hypertension) Current Visit: Yes Status: Acute Plan: continue triameterne/HCTZ and continue to monitor
--- NOTE | 2025-06-26 13:14 | P.DS ---
Admission Date: 06/26/25 Discharge Date: 06/26/25 Disposition: ROUTINE DISCHARGE Discharge Condition: FAIR Reason for Admission: Chest pain. Brief History of Present Illness: 45-year-old female with past medical history of essential hypertension, migraine headache, kidney stones, presented to the ER today complaining of chest pain radiating to her left upper back, with associated mild shortness of breath. States she had similar chest pain in February but it was not as severe like it was today. 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 It did demonstrate regions of atelectasis in the lungs. Initial troponin negative, EKG did not show any ischemic changes. Patient was hospitalized for ACS rule out. Hospital Course: Diagnosis Noncardiac chest pain Essential hypertension. Pneumonia Patient placed on observation on medical floor. Troponin trended negative. Patient chest pain noted to be reproducible by palpation, worse with coughing. Patient seen and evaluated by cardiology and no further inpatient workup recommended. Cardiology recommended follow-up in the office. CT chest reviewed and noted areas of atelectasis and ground glass opacity which could be pneumonia. Patient started on oral Levaquin and discharged with Levaquin for possible pneumonia. She is also discharged Tylenol 3 as needed for pain. Vital Signs/Physical Exam: Temp Pulse Resp BP Pulse Ox 97.7 F 84 16 116/71 96 06/26/25 12:00 06/26/25 12:00 06/26/25 12:00 06/26/25 12:06/26/25 12:00 General: Alert, In no apparent distress, Oriented x3 HEENT: Mucous membr. moist/pink Neck: JVD not distended Respiratory: Clear to auscultation bilaterally, Normal air movement Cardiovascular: No edema, Regular rate/rhythm, Normal S1 S2 Gastrointestinal: Normal bowel sounds, Soft and benign, Non-distended, No tenderness Musculoskeletal: No swelling, Tenderness (Chest wall) Integumentary: No rashes, No cyanosis Neurological: Normal speech, Normal strength at 5/5 x4 extr, Cranial nerves 3-12 intact Lymphatics: No axilla or inguinal lymphadenopathy Laboratory Data at Discharge: WBC 6.30 thou/uL (4.3-10.9) 06/25/25 20:02 Hgb 13.5 g/dL (12.0-15.0) 06/25/25 20:02 Hct 39.4 % (36.0-45.0) 06/25/25 20:02 Plt Count 370 thou/uL (152-406) 06/25/25 20:02 Sodium 140 mEq/L (136-145) 06/25/25 20:02 Potassium 3.6 mEq/L (3.5-5.1) 06/25/25 20:02 BUN 14 mg/dL (7-18) 06/25/25 20:02 Creatinine 0.59 mg/dL (0.55-1.02) 06/25/25 20:02 Glucose 103 mg/dL (74-106) 06/25/25 20:02 Magnesium 2.3 mg/dL (1.6-2.4) 06/25/25 20:02 Total Bilirubin 0.3 mg/dL (0.2-1.0) 06/25/25 20:02 AST 19 U/L (15-37) 06/25/25 20:02 ALT 29 U/L (13-56) 06/25/25 20:02 Alkaline Phosphatase 82 U/L (45-117) 06/25/25 20:02 Home Medications: Aspirin [Aspirin EC 81 MG] 81 mg PO DAILY #30 tab 06/26/25 Telmisartan/Hydrochlorothiazid [Telmisartan-Hctz 80-12.5 mg Tb] 1 each PO BEDTIME 06/26/25 levoFLOXacin [Levaquin] 750 mg PO DAILY #4 tab 06/26/25 New Medications: Aspirin [Aspirin EC 81 MG] 81 mg PO DAILY #30 tab levoFLOXacin [Levaquin] 750 mg PO DAILY #4 tab Diet: AHA Activity: Ad robin Followup: Bimal Padilla MD [ACTIVE - CAN ADMIT] - 1-2 Weeks NONE,NONE [Primary Care Provider] - Time spent managing pt's care (in minutes): 28
[2025-06-26 18:15] VITALS: BP 111/68; TEMP 98
[2025-06-26 20:29] VITALS: O2SAT 95
[2025-06-26] MEDS ORDERED: VALSARTAN 80 MG TAB PO SCH (21:00)
== END 2025-06-26 20:18 | disposition home or self-care (01) ==
LOC: ER 18:49 → 2ND 06-26 00:29
PROVIDERS: ADMIT Hospitalist; ATTEND Internal Medicine
DX: R07.89 Other chest pain (principal); J98.11 Atelectasis; R06.02 Shortness of breath; I10 Essential (primary) hypertension; G43.909 Migraine, unspecified, not intractable, without status migrainosus; N20.0 Calculus of kidney; F17.210 Nicotine dependence, cigarettes, uncomplicated
CPT/HCPCS: 36415; 71045; 71275; 74177; 80048; 80076; 81001; 81025; 83735; 83880; 84484; 85025; 93005; 93306; 96374; 99285; G0378; J1650; Q9967